=== PATIENT | female | born 1970 | race Caucasian/White ===

== ENCOUNTER 2022-02-19 09:34 | Emergency (ER) | payer OTHER ==
[2022-02-19 10:05] VITALS: BP 148/77
[2022-02-19 12:18] LABS: RBC,Urine > 182.0 /HPF (0.0-6.0); WBC,Urine > 182.0 /HPF (0.0-6.0)
[2022-02-19 12:30] LABS: Color,Urine Red (Yellow)
[2022-02-19 12:31] LABS: Bilirubin,Urine Negative (Negative); Blood,Urine Large (Negative)
[2022-02-19 12:32] LABS: Alanine Aminotransferase 12 units/L (7-56); Blood Urea Nitrogen 8 mg/dL (7-17); Calcium 9.3 mg/dL (8.4-10.2); Hemolysis Index 2
[2022-02-19 12:32] LABS: Protein,Urine >2000 mg dL mg/dL (Negative)
[2022-02-19 12:36] LABS: BUN/Creatinine Ratio 16
[2022-02-19 12:48] LABS: Basophils % (Auto) 0.2 % (0.0-1.8); Eosinophils % (Auto) 0.2 % (0.0-4.3); Hematocrit 42.6 % (30.3-42.9); Hemoglobin 13.9 gm/dl (10.1-14.3); Lymphocytes # (Auto) 1.5 K/mm3 (1.2-5.4); Lymphocytes % (Auto) 10.4 % (13.4-35.0); Mean Corpuscular HGB Conc 33 % (30-34); Mean Corpuscular Volume 88 fl (79-97); Monocytes # (Auto) 0.6 K/mm3 (0.0-0.8); Monocytes % (Auto) 4.3 % (0.0-7.3); Platelet Count 284 K/mm3 (140-440); Red Blood Count 4.83 M/mm3 (3.65-5.03); Red Cell Distribution Width 13.3 % (13.2-15.2)
--- NOTE | 2022-02-19 17:22 | Ultrasound Report ---
ULTRASOUND PELVIS INDICATION / CLINICAL INFORMATION: vaginal bleeding. TECHNIQUE: Transabdominal. Transvaginal Duplex Color Doppler used: Yes. COMPARISON: None available FINDINGS: UTERUS: The uterus is of normal size measuring 6.7 x 4.0 x 5.1 cm. Small amount of fluid is seen with in the endometrium of the fundus. Also noted within the endometrium is an echogenic focus measuring 1 .2 x 0.9 x 0.4 cm. This may represent endometrial polyp. The remainder the uterus is unremarkable. RIGHT ADNEXA: No significant ovarian cyst or mass. Normal color Doppler blood flow. LEFT ADNEXA: No significant ovarian cyst or mass. Normal color Doppler blood flow. FREE FLUID: None. ADDITIONAL FINDINGS: None. IMPRESSION: 1. 1.2 cm echogenic masslike area within the fundal portion of the endometrium . Findings may indicat e presence of polyp. Malignant etiology is also consideration but felt to be less likely. Gynecology consultation on nonemergent basis is recommended. 2. Both ovaries appear unremarkable. Signer Name: Coco Baires MD Signed: 02/19/2022 5:18 PM Workstation Name: [id number]
== END 2022-02-20 14:21 | disposition left against medical advice (07) ==
LOC: ED 09:34
DX: R31.9 Hematuria, unspecified (principal); Z53.21 Procedure and treatment not carried out due to patient leaving prior to being seen by health care provider
CPT/HCPCS: 36415; 76830; 76856; 80053; 81001; 85025

== ENCOUNTER 2022-02-19 14:43 | Emergency (ER) | payer OTHER ==
--- NOTE | 2022-02-19 16:54 | Emergency Department Report ---
ED Female HPI - General Chief complaint: Medical Clearance Stated complaint: PAIN BLOOD IN URINE Time Seen by Provider: 02/19/22 16:49 Source: patient, family Mode of arrival: Ambulatory Limitations: No Limitations - History of Present Illness Initial comments: Patient was seen here earlier this morning and the patient left to go get something to eat. Eloped. Returned after eating and asking to be seen. C/O menopausal vaginal bleeding. Labs and US was done previously when seen earlier today No fever/chills no back pain no abd pain eating normal vs no cp no sob ambulatory to ER in [place] See last visit- hours ago. Complaint: vaginal bleeding -: hour(s) Severity: mild Severity scale (0 -10): 2 Quality: cramping Consistency: intermittent Improves with: none Worsens with: none Are you Now?: No Associated Symptoms: vaginal bleeding. denies: vaginal discharge, abdominal pain, nausea/vomiting, fever/chills, headaches, loss of appetite, dysuria, hematuria, rash, seizure, shortness of breath, syncope, weakness - Related Data Sexually active: No Previous Rx's Medication Instructions Recorded Last Taken Type Sulfamethoxazole/Trimethoprim 1 each PO BID #10 tablet 02/19/22 Unknown Rx [Bactrim DS TAB] Allergies Allergy/AdvReac Type Severity Reaction Status Date / Time No Known Allergies Allergy Unverified 02/19/22 10:01 ED Review of Systems ROS: Stated complaint: PAIN BLOOD IN URINE Other details as noted in HPI Comment: All other systems reviewed and negative ED Past Medical Hx - Past Medical History Previous Medical History?: Yes Additional medical history: Vaginal delivery x 5 - Surgical History Past Surgical History?: No - Family History Family history: no significant - Social History Smoking Status: Never Smoker Substance Use Type: None - Medications Home Medications: Home Medications Medication Instructions Recorded Confirmed Last Taken Type Sulfamethoxazole/Trimethoprim 1 each PO BID #10 tablet 02/19/22 Unknown Rx [Bactrim DS TAB] ED Physical Exam - General Limitations: No Limitations General appearance: alert, in no apparent distress - Head Head exam: Present: atraumatic, normocephalic - Eye Eye exam: Present: normal appearance - ENT ENT exam: Present: mucous membranes moist - Neck Neck exam: Present: normal inspection - Respiratory Respiratory exam: Present: normal lung sounds bilaterally. Absent: respiratory distress - Cardiovascular Cardiovascular Exam: Present: regular rate, normal rhythm. Absent: systolic murmur, diastolic murmur, rubs, gallop - GI/Abdominal GI/Abdominal exam: Present: soft, normal bowel sounds - Extremities Exam Extremities exam: Present: normal inspection - Back Exam Back exam: Present: normal inspection - Neurological Exam Neurological exam: Present: alert, oriented X3 - Psychiatric Psychiatric exam: Present: normal affect, normal mood - Skin Skin exam: Present: warm, dry, intact, normal color. Absent: rash ED Course Vital Signs 02/19/22 02/19/22 15:53 18:02 Temperature 98.6 F 98.3 F Pulse Rate 86 72 Respiratory 20 14 Rate Blood Pressure 142/87 Blood Pressure 140/76 [Right] O2 Sat by Pulse 99 98 Oximetry ED Medical Decision Making - Radiology Data Radiology results: report reviewed, image reviewed - Medical Decision Making Vital Signs 02/19/22 15:53 Temperature 98.6 F Pulse Rate 86 Respiratory 20 Rate Blood Pressure 140/76 [Right] O2 Sat by Pulse 99 Oximetry SEE LABS FROM VISIT [facility] TODAY SEE US FROM [facility] TODAY UA NOTED LARGE WBC/RBC BACTRUM PO IN ER NO FEVER NO BACK PAIN POS SUPRAPUBIC PAIN NO CVA TENDERNESS PT BELIEVES BLOOD IS FROM VAGINAL SHE WILL BE TREATED WITH MEDS AND THEN FOLLOW UP WITH OBGYN REFERRALS GIVEN SON AT BEDSIDE AND HE AND PT VERBALIZE UNDERSTANDING OF PLAN OF CARE including diet, meds activity and follow up. Critical care attestation.: If time is entered above; I have spent that time in minutes in the direct care of this critically ill patient, excluding procedure time. ED Disposition Clinical Impression: Abnormal ultrasound of uterus UTI (urinary tract infection) Qualifiers: Urinary tract infection type: site unspecified Hematuria presence: with hematu dariel Qualified Code(s): N39.0 - Urinary tract infection, site not specified Disposition: HOME / SELF CARE / HOMELESS Is pt being admited?: No Does the pt Need Aspirin: No Condition: Stable Instructions: Postmenopausal Bleeding, Urinary Tract Infection, Adult, [id number] Additional Instructions: 1. MEDICATIONS UNTIL GONE FOR URINARY INFECTION 2. FOLLOW UP WITH OBGYN REFERRAL BELOW THEY CAN REVIEW IMAGES OF UTERUS AND MAKE SURE THE UTI HAS GONE AWAY MOTRIN OR TYLENOL FOR PAIN STAY WELL HYDRATED WITH WATER GLUCOSE HIGH ON TODAYS LABS NEED TO FOLLOW UP WITH PCP REFERRAL BELOW Prescriptions: Sulfamethoxazole/Trimethoprim [Bactrim DS TAB] 1 each PO BID #10 tablet Referrals: JOSEMANUEL PACHECO MD [Primary Care Provider] - 3-5 Days HERMAN STRINGER MD [Staff Physician] - 3-5 Days Forms: Accompanied Note, Work/School Release Form(ED) Time of Disposition: 16:54
[2022-02-19] MEDS ORDERED: SULFAMETHOXAZOLE/TRIMETHOPRIM 800/160MG DS TAB PO ONE (16:55)
[2022-02-19] MEDS ORDERED: HYDROcodone/ACETAMINOPHEN 5-325 MG TAB PO ONE (16:55)
[2022-02-19] MEDS ORDERED: FLUCONAZOLE 100 MG TAB PO ONE (17:05)
[2022-02-19 18:03] VITALS: BP 142/87
== END 2022-02-19 18:04 | disposition home or self-care (01) ==
LOC: ED 14:43
DX: N39.0 Urinary tract infection, site not specified (principal); R93.5 Abnormal findings on diagnostic imaging of other abdominal regions, including retroperitoneum
CPT/HCPCS: 36415; 76830; 76856; 80053; 81001; 85025; 99283